=== PATIENT | female | born 1970 | race Caucasian/White ===

== ENCOUNTER 2022-04-17 09:24 | Emergency (ER) | payer OTHER ==
[~2022-04-17] VITALS: Ht 162.6 cm; Wt 95.2 kg
[2022-04-17] MEDS ORDERED: CATAPRES0.1 MG PO (09:52)
[2022-04-17] MEDS ORDERED: LISI5 PO (09:52)
[2022-04-17] MEDS ORDERED: TRAZ50 PO (09:52)
[2022-04-17] MEDS ORDERED: Prozac20 MG PO (09:52)
[2022-04-17] MEDS ORDERED: IBUP800 PO (09:53)
== END 2022-04-17 11:40 | disposition home or self-care (01) ==
LOC: ER 09:24
DX: F41.9 Anxiety disorder, unspecified (principal); M25.561 Pain in right knee; Z79.899 Other long term (current) drug therapy
CPT/HCPCS: 99282

== ENCOUNTER 2022-05-07 21:58 | Emergency (ER) | payer OTHER ==
[~2022-05-07] VITALS: Ht 162.6 cm; Wt 136.1 kg
[~2022-05-07 21:58] MED LIST: CATAPRES0.1 MG PO; IBUP800 PO; LISI5 PO; Prozac20 MG PO; TRAZ50 PO
[2022-05-07] MEDS ORDERED: HYDHCL25 PO (23:26)
[2022-05-07 23:48] LABS: BASOPHILS ABSOLUTE AUTO 0.07 K/mm3 (0.00-0.23); BASOPHILS PERCENT AUTO 1 % (0-2); EOSINOPHILS ABSOLUTE AUTO 0.29 K/mm3 (0.00-0.68); EOSINOPHILS PERCENT AUTO 5 % (0-6); Hematocrit 38.8 % (33.0-51.0); IMMATURE GRAN ABSOLUTE AUTO 0.01 K/mm3 (0.00-0.10); IMMATURE GRAN PERCENT AUTO 0 % (0-1); LYMPHOCYTES ABSOLUTE AUTO 2.23 K/mm3 (0.84-5.20); LYMPHOCYTES PERCENT AUTO 37 % (21-46); MONOCYTES ABSOLUTE AUTO 0.39 K/mm3 (0.16-1.47); MONOCYTES PERCENT AUTO 6 % (4-13); Mean Corpuscular HGB 30.7 pg (26.0-34.0); Mean Corpuscular HGB Conc 33.5 g/dL (31.5-36.5); Mean Corpuscular Volume 92 fL (80-100); Mean Platelet Volume 9.3 fL (9.1-12.4); NEUTROPHILS ABSOLUTE AUTO 3.06 K/mm3 (1.96-9.15); NEUTROPHILS PERCENT AUTO 51 % (41-73); Platelet Count 363 K/mm3 (150-400); RDW Coefficient Variation 12.1 % (11.7-14.2); RDW Standard Deviation 40.8 fL (35.1-46.3); Red Blood Cell Count 4.23 M/mm3 (3.80-5.20); White Blood Cell Count 6.05 K/mm3 (4.00-11.30)
[2022-05-08 00:16] LABS: Ethanol (Alcohol), Blood, Med 7 mg/dL; Salicylate <1.7 mg/dL (2.8-20.0)
[2022-05-08 00:20] LABS: Alanine Aminotransfer (ALT/SGP 17 U/L (12-78); Albumin, Blood 3.6 g/dL (3.4-5.0); Alk Phos 77 U/L (50-136); Anion Gap 8 mmol/L (6-16); Aspartate Aminotrans (AST/SGOT 20 U/L (12-37); Bilirubin, Total 0.2 mg/dL (0.1-1.0); Blood Urea Nitrogen 13 mg/dL (8-24); Bun/Creatinine Ratio 15.4 (12.0-20.0); CO2, Blood 27 mmol/L (21-32); Calcium, Blood 9.1 mg/dL (8.5-10.1); Chloride, Blood 108 mmol/L (98-108); Creatinine, Blood 0.84 mg/dL (0.40-1.00); Globulin, Blood 3.5 g/dL (2.2-4.0); Glomerular Filtration Rate 83 (60-); Glucose, Blood 87 mg/dL (70-99); Potassium, Blood 4.1 mmol/L (3.5-5.5); Sodium, Blood 143 mmol/L (136-145); Total Protein, Blood 7.1 g/dL (6.4-8.2)
[2022-05-08 00:22] LABS: Acetaminophen, Random <2.0 ug/mL (10.0-30.0)
== END 2022-05-08 05:30 | disposition home or self-care (01) ==
LOC: ER 21:58
PROVIDERS: Student in an Organized Health Care Education/Training Program
DX: F32.A Depression, unspecified (principal); R45.851 Suicidal ideations; Z79.899 Other long term (current) drug therapy
CPT/HCPCS: 80053; 85025; 99285-25; G0480; Q3014